=== PATIENT | female | born 1990 | race Caucasian/White ===

== ENCOUNTER 2020-03-06 12:57 | Emergency (ER) | payer OTHER ==
[~2020-03-06] VITALS: Ht 154.9 cm; Wt 56.7 kg
[2020-03-06 12:59] VITALS: BP 128/73
--- NOTE | 2020-03-06 13:03 | NUR ---
BIB SIGNIFICANT OTHER W C/O 2 PETITE MAL SEIZURES THIS MORNING, AND 1 MORE SEIZURE UPON ARRIVAL TO ED. PT C/O 10/16 PAIN TO BACK OF SCALP AFTER FALLING AND HITTING HEAD DURING SEIZURE. NO OPEN WOUNDS NOTED. PT ALERT & A&O X4, ANSWERING QUESTIONS APPROPRIATELY. 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 SIDE RAIL UP X2 & SEIZURE PADS PLACED ON BED AND PATIENT PLACED ON BEDSIDE FLUME MAKER AT THIS TIME. BED IN LOW POSITION.
[2020-03-06] MEDS ORDERED: ACETAMINOPHEN EXTRA STRENGTH 500 MG TAB PO ONE (13:40)
--- NOTE | 2020-03-06 13:48 | NUR ---
PT AMBULATED TO RESTROOM WITH ASSISTANCE. PT UNABLE TO URINATE AT THIS TIME.
[2020-03-06 13:59] LABS: BASOPHILS # (AUTO) 0.1 K/uL (0.00-0.22); BASOPHILS % (AUTO) 0.6 % (0.0-2.0); EOSINOPHILS # (AUTO) 0.9 K/uL (0-0.4); EOSINOPHILS % (AUTO) 9.7 % (0.0-4.0); HEMATOCRIT 34.3 % (36-48); HEMOGLOBIN 11.2 g/dL (12.0-16.0); LYMPHOCYTES # (AUTO) 2.2 K/uL (2.5-16.5); LYMPHOCYTES % (AUTO) 23.5 % (20.5-51.1); MEAN CORPUSCULAR HEMOGLOBIN 31 pg (27-31); MEAN CORPUSCULAR HGB CONC 33 g/dL (33-37); MEAN CORPUSCULAR VOLUME 94.2 fL (80-94); MONOCYTES # (AUTO) 0.6 K/uL (0.8-1.0); NEUTROPHILS # (AUTO) 5.4 K/uL (1.8-7.7); NEUTROPHILS % (AUTO) 59.2 % (42.2-75.2); PLATELET COUNT (AUTO) 256 K/uL (140-450); RED BLOOD CELL COUNT(AUTO) 3.65 MIL/uL (4.20-5.40); WHITE BLOOD COUNT (AUTO) 9.2 K/uL (4.8-10.8)
[2020-03-06 14:13] LABS: ACETAMINOPHEN < 0.5 ug/ml (10-30); ANION GAP 13.9 (8-16); ASPARTATE AMINOTRANSFERASE 17 U/L (15-37); CARBON DIOXIDE 26.5 mmol/L (21-32); CHLORIDE 108 mmol/L (98-107); CREATININE 0.9 mg/dL (0.6-1.3); GFR ARICAN-AMERICAN 95 mL/min (>90); GLUCOSE 85 mg/dL (74-106); POTASSIUM 4.4 mmol/L (3.5-5.1); SODIUM SERUM 144 mmol/L (136-145); TOTAL BILIRUBIN 0.2 mg/dL (0.0-1.0); UREA NITROGEN, BLOOD 11 mg/dL (7-18); VALPROIC ACID 16 ug/ml (50-100)
[2020-03-06 14:15] LABS: SALICYLATE < 2.8 mg/dL (2.8-20.0)
[2020-03-06 15:09] LABS: BARBITURATE, URINE POSITIVE ng/ml (NEG <=200); BENZODIAZEPINE, URINE NEGATIVE ng/mL (NEG <=200); CANNABINOID, URINE NEGATIVE ng/mL (NEG <=50); COCAINE, URINE NEGATIVE ng/mL (NEG <=300); OPIATE, URINE NEGATIVE ng/mL (NEG <=2000); PHENCYCLIDINE SCREEN,URINE NEGATIVE ng/mL (NEG <=25)
[2020-03-06] MEDS ORDERED: fentaNYL citrate 0.05 MG/ML VIAL IM ONE (15:35)
[2020-03-06 16:05] VITALS: BP 128/73
--- NOTE | 2020-03-06 16:06 | NUR ---
Patient discharged with v/s stable. Written and verbal after care instructions given and explained. Patient alert, oriented and verbalized understanding of instructions. Ambulatory with steady gait. All questions addressed prior to discharge. ID band removed. Patient advised to follow up with PMD. Rx of PERCOGESIC given. Patient educated on indication of medication including possible reaction and side effects. Opportunity to ask questions provided and answered.
== END 2020-03-06 16:06 | disposition home or self-care (01) ==
LOC: MED 12:57
DX: R51.9 Headache, unspecified (principal); R56.9 Unspecified convulsions; Z91.040 Latex allergy status
CPT/HCPCS: 36415; 70450; 80053; 80305; 84703; 85025; 85610; 96372; 99284; G0480; G0482; J3010